=== PATIENT | female | born 1985 | race Caucasian/White ===

== ENCOUNTER 2016-09-08 21:18 | Emergency (ER) | payer OTHER ==
[~2016-09-08] VITALS: Ht 177.8 cm; Wt 64.5 kg
[~2016-09-08 21:18] MED LIST: DIGE1CAP PO; LACT1CAP73 PO; MULT1CAP33 PO; THYR60TA2 PO; [UNRECOGNIZED DRUG - CODE] PO
[2016-09-08 21:27] VITALS: BP 115/54; PULSE 69; RESP 16; O2SAT 100
--- NOTE | 2016-09-08 22:36 | ED.REPORT ---
HPI-Extremity Problem Upper Date of Service Sep 08, 2016 ED Provider: Hussain Alvarado MD Patient is a healthy 31 year old female up to date on her tetanus vaccination who presents to the ED with a right hand laceration after accidentally cutting herself at 17:45 this evening. The patient was attempting to remove a paint roller from its base with a serrated knife, when the knife slipped into her hand. The wound bled for several hours but is not bleeding in the ED. The patient also reports finger numbness that has since resolved. She denies additional injury/trauma or other symptoms. The patient's dominant hand is her left. Nursing Notes Stated Complaint: RIGHT HAND LACERATION Chief Complaint: Laceration Nursing Notes Reviewed: Yes Allergies: Coded Allergies: No Known Allergies (Unverified , 09/08/16) Scheduled Digestive Enzymes Combo No.7 (Superior Digestive Enzyme) 1 Each Capsule 1 EACH PO DAILY Lactobacillus Combo No.11 (Probiotic) 1 Each Cap.sprink 1 EACH PO DAILY Mag Carb/Al Hydrox/Alginic AC (Riginic Suspension) 360 Ml Oral.susp 360 ML PO DAILYWD Multivitamin (Multivitamins) 1 Each Capsule 1 EACH PO DAILY Thyroid,Pork ([place] Thyroid) 60 Mg Tablet 60 MG PO DAILY General Time Seen by MD: 22:35 Chief Complaint Other (Right Hand Laceration) Hx Obtained From: Patient Arrived By: Walk-in Onset Occurred: 5 - 8 hours ago Symptom Duration: Since onset Caused by: Accidental, Knife wound Location: : Hand right Quality: Painful Severity: Current: Moderate Severity: Maximum: Moderate Pertinent Negative: Relieved by nothing Immunizations: Tetanus up to date Recent Healthcare: No recent doctor visit Past Medical History Past Medical History None reported Past Surgical History None reported Smoking History Never Smoker Social History Other Social History: Good social support Ambulatory Status Independent Review of Systems Review of Systems Note: + Right hand laceration Constitutional: Denies: Fever Musculoskeletal: Reports: Extremity pain (Right hand) Neurologic: Reports: Numbness (Right fingers, resolved) Complete sys rev & neg: except as marked. Respiratory: Denies: Non-productive cough, Shortness of breath GI: Denies: Diarrhea, Vomiting Physical Exam Initial Vital Signs Vital Signs (First) Date Time Temp Pulse Resp B/P Pulse Ox O2 Delivery O2 Flow Rate FiO2 09/08/16 21:27 36.6 69 16 115/54 100 Room Air Initial VS: Reviewed Head / Eyes: Atraumatic, Normocephalic ENT: Conjunctiva normal, No scleral icterus Respiratory: No respiratory distress Skin: Warm, Dry, No cyanosis Neurologic: Alert, Oriented, Nonfocal Psychiatric: Mood/affect normal, Behavior normal, Normal thought content General/Constitutional: Awake, Alert Neck: Supple, Full range of motion Wrist / Hand: Full range of motion, Neurologic intact (Full sensation), Vascular intact Trauma / Burn / Environmental: Positive: Laceration (1.5 cm, to dorsum of right hand just distal to the knuckles, 2/3 laceration of the extensor ligament) Procedures Laceration Management Time: 23:29 Procedure Performed by: ED physician Consent / Setup / Site Prep: Consent from patient, Time-out performed, Hand hygiene observed, Stand sterile technique Location of Wound: 1.5 cm, to dorsum of right hand just distal to the knuckles Local Anesthesia: Lidocaine 1% Wound Preparation: Normal saline (And wound cleanser) Irrigation: Copious Repair Skin: ___ O (5), Nylon # Sutures - Skin: 4 Closure Layers: 1 Suture Technique: Simple Post-Procedure / Complications: Antibiotic oint applied, Dressing applied, No complications, Condition improved, Tolerated procedure well, Patient stable Re-Eval/Medical Decision Med Decision/Clinical Course Patient presents with deep laceration about the dorsum of her right second finger just distal to the MCP joint. She is neurovascularly intact in the affected finger and can fully flex and extend the finger however upon exploration of the wound she has significant laceration through the extensor tendon to me that she is probably cut at least 50% of the way through. The wound was copiously irrigated, anesthetized with lidocaine and the superficial layer of skin was closed with interrupted nylon sutures. She was placed in a radial gutter splint and the finger was kept in extension to approximate the extensor tendon. I discussed the case with Dr. Moreno orthopedic surgery who will see her in clinic next week. He agrees with the plan. Patient was prescribed [place] for pain and prophylactic Augmentin. She is advised to return immediately for any signs of neurovascular compromise, infection or other concerning signs or symptoms. Prior to discharge follow-up and return precautions were reviewed in detail with the patient who verbalized understanding and agreement with the plan. The patient was discharged in stable condition. Re-Evaluation/Progress #1: Time of Eval: 23:29 Patient Status: Condition improved Re-Evaluation/Progress Note: Laceration management performed. Discussed with patient diagnosis and plan for discharge. Follow-up and return to the ER instructions given. Patient agrees with plan for care and all questions were addressed. Re-Evaluation/Progress #2: Time of Eval: 23:50 Patient Status: Condition improved Re-Evaluation/Progress Note: Discussed orthopedic consult. Consultation : Referral / Consult Name: Cb Moreno DO Consulted With: Orthopedic Call Returned at: 23:47 Senior Business Development Manager: Will see in office, Agrees with eval, Agrees with plan Note: Recommends radial gutter splint. Counseled Regarding: Diagnosis, Need for follow-up, When/why to return to ED Discharge & Departure Impression: Primary Impression: Laceration Additional Impression: Extensor tendon laceration of finger with open wound Encounter type: initial encounter Qualified Code: S66.529A - Laceration of intrinsic muscle, fascia and tendon of unspecified finger at wrist and hand level, initial encounter Disposition: Home Discharge Condition All VS Reviewed: Yes Condition: Improved Patient Instructions: Laceration (ED) Additional Instructions: Thank you for seeking care at the emergency room. You were evaluated for a right hand laceration. Your laceration extends down to the extensor ligament and you have partially cut through your extensor ligament. You will be discharged with a prescription for prophylactic antibiotics and pain medication. Please take as directed. You have been placed in a splint to immobilize her finger, please wear at all times. You may cover the splint with a plastic bag in order to take a shower. You should follow-up with Dr. Moreno (orthopedic surgeon) first thing next week. Please call on Sunday to arrange an appointment. We have sutured the skin over the injury however the surgeon may remove the sutures and explore further. Regardless will need to follow up next week to have the wound reevaluated. You should return to the ED immediately if you develop redness, swelling, discharge, tingling/sensory loss in your finger, discoloration of your fingers, fevers or any other concerning signs or symptoms. Thank you for letting us partake in your care today. Narcotic Pain Medicine You have been prescribed a narcotic for pain relief. These drugs are usually combined with acetaminophen (Tylenol#3, Percocet, Darvocet, Anexsia, Vicodin) or aspirin (Empirin#3, Percodan, Synalogs-DC) for increased effect. Narcotics act on the central nervous system to reduce pain; they also impair mental alertness and physical abilities. We advise you not to drink alcohol, drive a car, or operate dangerous equipment when you are taking these drugs. You can lessen stomach irritation from your medicine by taking it with meals or a full glass of water. Common side effects of narcotics are: Nausea and vomiting , heartburn, constipation, dizziness, sleepiness, and mood changes. If you have bothersome side effects or symptoms of an allergic reaction (itching, hives, rash), stop taking your medicine and call your doctor or the emergency room right away. Please keep your narcotic medicine well out of the reach of children. Referrals: OTHER,PHYSICIAN (PCP) Cb Moreno Attestation Portions of this note were transcribed by Aedle Thomas. I, Dr. Alvarado, personally performed the history, physical exam, and medical decision-making; I reviewed and confirmed the accuracy of the information in the transcribed note. Signed by: Twan Mckeon, 09/09/2016, 00:15 copies to: Cb Moreno Beck O MD Sep 08, 2016 22:36 ADELE THOMAS Sep 08, 2016 23:03
[2016-09-08] MEDS ORDERED: Lidocaine 1%-Epi 1:100,000 50 mL Inj SUBQ ONE (23:00)
[2016-09-08] MEDS ORDERED: _HYDROcodone/APAP 5-325 mg Tablet PO PRN (23:55)
[2016-09-09 00:39] VITALS: BP 108/63; PULSE 63; RESP 16; O2SAT 99
[2016-09-09] MEDS ORDERED: _Amoxicillin-Clavulanate 875-125 mg Tablet PO SCH (08:30)
== END 2016-09-09 00:20 | disposition home or self-care (01) ==
LOC: SED 21:18
DX: S66.320A Laceration of extensor muscle, fascia and tendon of right index finger at wrist and hand level, initial encounter (principal); W26.0XXA Contact with knife, initial encounter; Y93.89 Activity, other specified; Y92.89 Other specified places as the place of occurrence of the external cause; Y99.8 Other external cause status